=== PATIENT | female | born 1945 | race Hispanic/Latino ===

== ENCOUNTER 2018-04-06 08:38 | Outpatient (CLI) | payer MEDICARE | END 2018-04-06 08:39 | disposition home or self-care (01) | LOC: BICMAMMO 08:38 | PROVIDERS: ATTEND Nurse Practitioner Women's Health | DX: C50.212 Malignant neoplasm of upper-inner quadrant of left female breast (principal) | CPT/HCPCS: 19083; 76642; 77065; 77066; 88305; 88341; 88342; 88361; G0279 ==

== ENCOUNTER 2018-08-08 11:57 | Outpatient (CLI) | payer MEDICARE ==
[2018-08-08 13:31] LABS: #Basophils 0.1 thou/uL (0.0-0.2); #Eosinphils 0.1 thou/uL (0.0-0.7); #Lymphocytes 3.3 thou/uL (1.20-3.40); #Monocytes 0.7 thou/uL (0.11-0.59); #Neutrophils 6.2 thou/uL (1.40-6.50); %Basophils 0.8 % (0.0-1.0); %Eosinophils 1.2 % (0.0-10.0); %Lymphocytes 31.7 % (21.0-51.0); %Monocytes 6.8 % (0.0-10.0); %Neutrophils 59.6 % (42.0-75.0); Hemoglobin 14.6 g/dL (12.0-16.0); Mean Corpuscular HGB CONC 34.3 g/dL (32.0-36.0); Mean Corpuscular Hemoglobin 29.9 pg (27.0-31.0); Mean Corpuscular Volume 87.2 fL (78.0-98.0); Mean Platelet Volume 8.7 fL (7.4-10.4); Platelet Count 195 thou/uL (130-400); RBC Distribution Width 11.8 % (11.5-14.5); Red Blood Cell (RBC) Count 4.88 mill/uL (4.20-5.40); White Blood Cell (WBC) Count 10.4 thou/uL (4.8-10.8)
[2018-08-08 13:45] LABS: Anion Gap 12 mmol/L (10-20); BUN (Urea Nitrogen) 14 mg/dL (9.8-20.1); Calc. Creatinine Clearance 0 mL/min (70-130); Calcium 9.7 mg/dL (7.8-10.44); Carbon Dioxide 27 mmol/L (23-31); Chloride 103 mmol/L (98-107); Estimated GFR-MDRD 80; Glucose 115 mg/dL (83-110); Potassium 3.5 mmol/L (3.5-5.1); Sodium 138 mmol/L (136-145)
== END 2018-08-08 11:58 | disposition home or self-care (01) ==
LOC: LABBT 11:57
PROVIDERS: ATTEND Specialist
DX: Z01.818 Encounter for other preprocedural examination (principal); C50.912 Malignant neoplasm of unspecified site of left female breast
CPT/HCPCS: 80048; 85025; 93005; 93010

== ENCOUNTER 2018-08-14 08:05 | Day surgery (SDC) | payer MEDICARE ==
[2018-08-08 12:22] VITALS: BMI 30.2
[2018-08-14] MEDS ORDERED: Ketorolac Tromethamine 30 MG/ML VIAL ONE (10:14)
[2018-08-14] MEDS ORDERED: CEFAZOLIN 2 GM/50 ML BAG ONE (10:14)
[2018-08-14] MEDS ORDERED: Midazolam HCl 2 mg/2 ml Vial ONE (10:49)
--- NOTE | 2018-08-14 11:07 | NM ---
LEFT BREAST LMPHOSCINTIGRAPHY: DATE: 08/14/2018. HISTORY: Left breast cancer. RADIOPHARMACUETICAL: 419 mCi Technetium 99m filtered sulfur colloid administered intravenously and subcutaneously in a per iareolar location in the left breast. FINDINGS: Two focal areas of increased uptake of radiotracer are seen in the left axilla on immediate lateral p ositioning which are not well seen on the anterior position likely representing sentinel lymph nodes within the left axilla. IMPRESSION: Two separate focal areas of increased uptake of radiotracer in the left axilla suggesting sentinel ly mph nodes. POS: MARCELINO
[2018-08-14] MEDS ORDERED: Bupivacaine/Epinephrine 0.25% 30 ML VIAL ONE ×2 (12:58→14:19)
[2018-08-14] MEDS ORDERED: Fentanyl 100 MCG/2 ML VIAL ONE ×2 (13:19→14:35)
[2018-08-14] MEDS ORDERED: Isosulfan Blue 50 MG/5 ML VIAL ONE (13:21)
[2018-08-14] MEDS ORDERED: PROPOFOL 200 MG/20 ML VIAL ONE (16:34)
[2018-08-14] MEDS ORDERED: Ondansetron PF 4 MG/2 ML Vial ONE (16:34)
[2018-08-14] MEDS ORDERED: Dexamethasone 20 MG/5 ML VIAL ONE (16:34)
[2018-08-14] MEDS ORDERED: PHENYLEPHRINE-NS 100 MCG/ML 10 ML SYRINGE ONE (16:34)
--- NOTE | 2018-08-15 17:10 | OP ---
DATE OF PROCEDURE: 08/14/2018 PREOPERATIVE DIAGNOSIS: Left breast cancer. POSTOPERATIVE DIAGNOSIS: Left breast cancer. PROCEDURE PERFORMED: Left axillary sentinel lymph node mapping, left axillary sentinel lymph node biopsy, left breast ultrasound-guided needle localization, and left breast needle-localized lumpectomy. ANESTHESIA: General endotracheal. INDICATIONS: The patient is a 72-year-old female. She had presented with a hormone receptor positive left breast cancer. She was interested in breast-conserving surgery. For this reason, I had recommended a course of neoadjuvant therapy. This was conducted per her oncologist, Dr. Fischer, with hormonal medication. She certainly had an appropriate response with diminution in the size of the left breast cancer. She was taken to the operating room this time for planned lumpectomy and sentinel lymph node biopsy. DESCRIPTION OF OPERATION: Informed consent was obtained. The patient was taken to the operating room, where general endotracheal anesthesia was obtained with the patient in supine position. She had undergone lymphoscintigraphy preoperatively. This had revealed left axillary sentinel lymph nodes. In the operating room, I infiltrated 2.5 mL of Lymphazurin in the left periareolar subdermal tissue and massaged this for 5 minutes. The breast and axilla were then prepped with ChloraPrep and draped in sterile fashion. Attention was turned first to the left axilla. Local anesthetic was infiltrated using 0.25% Marcaine with epinephrine. A transverse axillary incision was created and dissection carried through skin and subcutaneous tissue. Entry was gained to the axilla by incising the superficial axillary fascia. Neoprobe was utilized to identify areas of maximum radio intensity. I was able to identify three sentinel lymph nodes that had radioactivity and blue dye. These were each identified, dissected circumferentially, and removed. All investing lymphatics were divided between clamps and 3-0 silk ties. Hemostasis was meticulous. The wound was closed in layers of 3-0 and 4-0 Monocryl. Additional local anesthetic was infiltrated during closure. Attention was then turned to the breast. Ultrasound was utilized to identify the area of obvious visible malignancy at about 10:30 radian close to the edge of the areola. This was marked in a grid-type fashion on the skin. I then placed a localizing needle in a medial to lateral fashion using ultrasound guidance. A transverse incision was created to incorporate the localizing needle and centered over the malignancy. Dissection was carried through skin and subcutaneous tissue. Flaps were raised in all directions about 8 to 9 mm deep to the skin. I began my dissection lateral to the localizing needle and carried the dissection down to the posterior aspect and by following the sonographic and palpable abnormality, attempted to obtain appropriate margins around the malignancy. It was removed intact with the wire intact. It was tagged for orientation and passed off the field to Pathology. Unfortunately, a specimen mammography did not get performed. Meticulous hemostasis was obtained within the wound. The wound was irrigated. All irrigant was aspirated. The wound was closed in layers with 3-0 and 4-0 Monocryl suture. An additional local anesthetic was infiltrated during closure. Dermabond was placed externally over both incision sites. There were no complications. The patient tolerated the procedure well and was taken to recovery room in stable condition. Job ID: [id number]
== END 2018-08-14 17:45 | disposition home or self-care (01) ==
LOC: SDC 08:05
PROVIDERS: ATTEND Specialist
PROC: 0HBU0ZZ Excision of Left Breast, Open Approach (ICD-10-PCS; principal; 2018-08-14)
PROC: 07B60ZX Excision of Left Axillary Lymphatic, Open Approach, Diagnostic (ICD-10-PCS; 2018-08-14)
DX: C50.212 Malignant neoplasm of upper-inner quadrant of left female breast (principal); C77.3 Secondary and unspecified malignant neoplasm of axilla and upper limb lymph nodes; E78.00 Pure hypercholesterolemia, unspecified; E11.9 Type 2 diabetes mellitus without complications; I10 Essential (primary) hypertension; Z17.0 Estrogen receptor positive status [ER+]; Z79.811 Long term (current) use of aromatase inhibitors; Z79.82 Long term (current) use of aspirin; Z79.899 Other long term (current) drug therapy; Z88.5 Allergy status to narcotic agent; Z79.84 Long term (current) use of oral hypoglycemic drugs
CPT/HCPCS: 19301; 38525; 38900; 78195; 88307; 88333; 88334; 88342; A9541; Q9968; J0131; J1100; J1885; J2250; J2405; J2704; J3010

== ENCOUNTER 2025-05-01 11:33 | Outpatient (CLI) | payer OTHER | END 2025-05-01 11:34 | disposition home or self-care (01) | LOC: BICMAMMO 11:33 | PROVIDERS: ATTEND Family Medicine | DX: Z12.31 Encounter for screening mammogram for malignant neoplasm of breast (principal); Z85.3 Personal history of malignant neoplasm of breast; Z90.12 Acquired absence of left breast and nipple | CPT/HCPCS: 77063; 77067 ==